=== PATIENT | female | born 1990 | race Caucasian/White ===

== ENCOUNTER 2017-01-30 18:50 | Observation (INO) | payer OTHER ==
[~2017-01-30] VITALS: Ht 160 cm; Wt 68.0 kg
[2017-01-30 20:22] VITALS: BP 130/87
== END 2017-01-30 20:50 | disposition home or self-care (01) ==
LOC: MLD 18:50
PROVIDERS: ADMIT Obstetrics & Gynecology; ATTEND Obstetrics & Gynecology
DX: O26.892 Other specified pregnancy related conditions, second trimester (principal); R10.9 Unspecified abdominal pain; R51 Headache; O99.512 Diseases of the respiratory system complicating pregnancy, second trimester; R06.02 Shortness of breath; Z3A.20 20 weeks gestation of pregnancy
CPT/HCPCS: 76805; G0378; Q0092

== ENCOUNTER 2021-06-07 18:32 | Emergency (ER) | payer OTHER ==
--- NOTE | 2021-06-07 19:00 | NUR ---
CALLED X1. NO SHOW
--- NOTE | 2021-06-07 19:12 | NUR ---
PATIENT LEFT WITHOUT BEING TRIAGED . NO FURTHER CARE PROVIDED FOR PATIENT.
== END 2021-06-07 19:12 | disposition left against medical advice (07) ==
LOC: MED 18:32
DX: Z53.21 Procedure and treatment not carried out due to patient leaving prior to being seen by health care provider (principal)

== ENCOUNTER 2023-02-01 10:28 | Emergency (ER) | payer OTHER ==
[~2023-02-01] VITALS: Ht 160 cm; Wt 56.7 kg
[2023-02-01 10:39] VITALS: BP 113/83
[2023-02-01] MEDS ORDERED: LIDOCAINE 1% 500 MG/ 50 ML VIAL INJ ONE (11:30)
--- NOTE | 2023-02-01 11:31 | NUR ---
ASSUMED PATIENT CARE, NURSING ASSESSMENT COMPLETED.
[2023-02-01] MEDS ORDERED: LIDOCAINE MPF 1% 5 ML ONE (11:36)
[2023-02-01 11:53] VITALS: BP 113/83
--- NOTE | 2023-02-01 11:53 | NUR ---
Patient discharged with v/s stable. Written and verbal after care instructions given and explained. Patient verbalized understanding. Ambulatory with steady gait. All questions addressed prior to discharge. Advised to follow up with PMD.
== END 2023-02-01 11:53 | disposition home or self-care (01) ==
LOC: MED 10:28
DX: S61.214A Laceration without foreign body of right ring finger without damage to nail, initial encounter (principal); W26.8XXA Contact with other sharp object(s), not elsewhere classified, initial encounter; Y93.89 Activity, other specified; Y92.89 Other specified places as the place of occurrence of the external cause; Y99.8 Other external cause status
CPT/HCPCS: 12001; 90471; 99283; J2001